=== PATIENT | female | born 1950 | race Caucasian/White ===

== ENCOUNTER 2017-04-22 06:40 | Inpatient (IN) | payer MEDICARE ==
[2017-04-22] MEDS ORDERED: Albuterol-Ipratrop 3 mg / 0.5 (3 ml) UD IH STA (07:19)
[2017-04-22] MEDS ORDERED: methylPREDNISolone 125 MG in Sodium Chloride 0.9% 50 ML IVPB STA (07:19)
[2017-04-22] MEDS ORDERED: Albuterol-Ipratrop 3 mg / 0.5 (3 ml) UD INH STA ×2 (07:22→07:23)
[2017-04-22] MEDS ORDERED: Sodium Chloride 0.9% 1,000 ML IV STA (07:22)
--- NOTE | 2017-04-22 07:30 | ED PDOC ---
History of Present Illness History of Present Illness: 67yo female with history of asthma, COPD, breast cancer with left breast mastectomy, presents to ER with complaints of cough, and fever for the past 4 days. Patient states she might have the flu however she has not visited her PCP for evaluation yet. She is currently on albuterol/ipratropium on home, as well as montelukast for her allergies. She reports shortness of breath, intermittent episodes of post-tussive vomiting as well. She denies any diarrhea, back pain or abdominal pain. Of note, patient states she fell 3 days ago and injured her left knee; denies any weakness, numbness, new injuries or trauma. She has no other medical complaints. HPI: Influenza Time Seen by Provider: 04/22/17 07:09 Chief Complaint: Flu-like Symptoms Chief Complaint (Provider): Cough, fever History Per: Patient Exam Limitations: no limitations Have you had recent travel within the past 21 days to any of: No Onset/Duration Of Symptoms: Days (4) Symptoms include: fever, cough, vomiting (post-tussive) Risk factors for flu complications: Yes: adult > 65 years, chronic lung disease Past Medical History Reviewed: Historical Data, Nursing Documentation, Vital Signs Vital Signs: Last Vital Signs Temp 97.4 F L 04/22/17 06:55 Pulse 89 04/22/17 06:55 Resp 16 04/22/17 06:55 BP 121/81 04/22/17 06:55 Pulse Ox 96 04/22/17 06:55 - Medical History PMH: Asthma, COPD, Malignancy (LEFT BREAST) - Surgical History Surgical History: Appendectomy, Cholecystectomy Other surgeries: left mastectomy - Family History Family History: States: Unknown Family Hx - Social History Current smoker - smoking cessation education provided: Yes SMOKER/PACKS PER DAY:: 1 (for 30+ years) Alcohol: None Drugs: Denies - Immunization History Hx Tetanus Toxoid Vaccination: No Hx Influenza Vaccination: No Hx Pneumococcal Vaccination: No - Home Medications Home Medications: Ambulatory Orders Medication Instructions Recorded Albuterol 0.083% [Albuterol 0.083% 3 ml IH DAILY 03/24/15 Inhal Amy (2.5 mg/3 ml) UD] Montelukast [Singulair] 10 mg PO DAILY 03/24/15 Omeprazole 40 mg PO DAILY 02/13/16 Tiotropium [place] Inhaler 1 inhaler INH PRN PRN 03/24/15 [Spiriva Inhalation Handihaler Device] Naproxen Sodium [Naproxen Sodium 375 mg PO BID PRN 12/30/16 Cr] Ondansetron ODT [Zofran ODT] 1 odt PO BID PRN #6 odt 12/30/16 Pantoprazole Sodium [Protonix] 20 mg PO DAILY #15 ect 12/30/16 - Allergies Allergies/Adverse Reactions: Allergies Allergy/AdvReac Type Severity Reaction Status Date / Time No Known Allergies Allergy Unverified 03/24/15 23:22 Review of Systems ROS Statement: Except As Marked, All Systems Reviewed And Found Negative Constitutional: Positive for: Fever Cardiovascular: Negative for: Chest Pain Respiratory: Positive for: Cough, Shortness of Breath Gastrointestinal: Negative for: Abdominal Pain Musculoskeletal: Positive for: Leg Pain (left knee pain) Physical Exam - Reviewed Nursing Documentation Reviewed: Yes Vital Signs Reviewed: Yes - Physical Exam Appears: Positive for: Non-toxic, In Acute Distress (mild to moderate distress) Head Exam: Positive for: ATRAUMATIC, NORMAL INSPECTION, NORMOCEPHALIC Skin: Positive for: Normal Color Eye Exam: Positive for: Normal appearance Neck: Positive for: Supple Cardiovascular/Chest: Positive for: Regular Rate, Rhythm Respiratory: Positive for: Wheezing (diffuse bilateral expitory wheezing; prolonged expitory phase). Negative for: Rales Gastrointestinal/Abdominal: Positive for: Normal Exam, Soft. Negative for: Tenderness Extremity: Positive for: Normal ROM, Swelling (mild swelling to left knee; patient has a knee brace on). Negative for: Pedal Edema Neurologic/Psych: Positive for: Alert, Oriented. Negative for: Motor/Sensory Deficits Medical Decision Making Medical Decision Making: Impression: COPD/Asthma exacerbation Plan: -- Duoneb 3ml INH x 3 -- Labs -- CXR -- EKG -- Solumedrol 125mg IVP -- IV Fluids -- Tylenol 650mg PO -- Rapid Flu Time: 0918 CXR FINDINGS: LUNGS: No consolidative infiltrate suggested. A 2 mm probable granuloma and/or bone island over the left mid to upper lung zone is noted. Conceivably a prominent vessel on end could simulate this definite given the slightly larger configuration contralateral right lung. PLEURA: No significant pleural effusion identified. No pneumothorax apparent. CARDIOVASCULAR: Normal. OSSEOUS STRUCTURES: Thoracic spondylosis. Bilateral shoulder arthrosis. VISUALIZED UPPER ABDOMEN: Normal. OTHER FINDINGS: None. IMPRESSION: No consolidative infiltrate suggested. Scribe Attestation: Documented by Maria T Felder, acting as a scribe for Mayda Pittman MD. Provider Scribe Attestation: All medical record entries made by the Scribe were at my direction and personally dictated by me. I have reviewed the chart and agree that the record accurately reflects my personal performance of the history, physical exam, medical decision making, and the department course for this patient. I have also personally directed, reviewed, and agree with the discharge instructions and disposition. peak flow 100-150 after 3 nebs and solumedrol IV. Patient continues to feel short of breath. Will admit. Case d/w Dr. Jules for med service admission. - Laboratory Results Result Diagrams: 04/22/17 08:01 04/22/17 08:01 - ECG ECG: Positive for: Interpreted By Me, Viewed By Me Interpretation Of ECG: Sinus Rhythm Normal [place] Rate: 87 O2 Sat by Pulse Oximetry: 96 (RA) Pulse Ox Interpretation: Normal Disposition - Clinical Impression Clinical Impression: COPD exacerbation - Patient ED Disposition Is Patient to be Admitted: Yes Doctor Will See Patient In The: Hospital - Disposition Referrals: Mohini Dobson MD [Primary Care Provider] - Disposition: Routine/Home Disposition Time: 09:46 Condition: FAIR Forms: [employer] (Tanzanian) - Pt Status Changed To: Hospital Disposition Of: Observation - POA Present On Arrival: None
[2017-04-22] MEDS ORDERED: Albuterol-Ipratrop 3 mg / 0.5 (3 ml) UD ONE (07:37)
[2017-04-22 08:06] LABS: BASO # 0.1 K/uL (0.0-0.2); BASO % 1.1 % (0.0-2.0); EOS # 0.5 K/uL (0.0-0.7); EOS % 9.9 % (0.0-4.0); HEMOGLOBIN 13.9 g/dL (12.0-16.0); LYMPH # 1.5 K/uL (1.0-4.3); LYMPH % 28.3 % (20.0-40.0); MEAN CELL VOLUME 88.8 fl (81.0-99.0); MEAN CORPUSCULAR HEMOGLOBIN 30.7 pg (27.0-31.0); MEAN CORPUSCULAR HGB CONC 34.6 g/dL (33.0-37.0); MEAN PLATELET VOLUME 6.6 fl (7.2-11.7); MONO # 0.6 K/uL (0.0-0.8); MONO % 10.6 % (0.0-10.0); NEUT # 2.7 K/uL (1.8-7.0); NEUT % 50.1 % (50.0-75.0); NRBC % 0.1 % (0.0-0.0); RBC 4.54 Mil/uL (3.80-5.20); RED CELL DISTRIBUTION WIDTH 13.7 % (11.5-14.5); WHITE BLOOD COUNT 5.5 K/uL (4.8-10.8)
[2017-04-22 08:19] LABS: ALT/SGPT 38 U/L (9-52); AST/SGOT 37 U/L (14-36); BLOOD UREA NITROGEN 18 mg/dl (7-17); CALCIUM 9.5 mg/dL (8.4-10.2); GFR AFRICAN-AMERICAN > 60; GFR NON-AFRICAN AMERICAN > 60
--- NOTE | 2017-04-22 09:12 | RAD ---
HISTORY: cough, fever x 4 days, wheezing COMPARISON: No prior. TECHNIQUE: Chest PA and lateral FINDINGS: LUNGS: No consolidative infiltrate suggested. A 2 mm probable granuloma and/or bone island over the left mid to upper lung zone is noted. Conceivably a prominent vessel on end could simulate this definite given the slightly larger configuration contralateral right lung. PLEURA: No significant pleural effusion identified. No pneumothorax apparent. CARDIOVASCULAR: Normal. OSSEOUS STRUCTURES: Thoracic spondylosis. Bilateral shoulder arthrosis. VISUALIZED UPPER ABDOMEN: Normal. OTHER FINDINGS: None. IMPRESSION: No consolidative infiltrate suggested.
--- NOTE | 2017-04-22 09:36 | RAD ---
PROCEDURE: Left Knee Radiographs. HISTORY: Pain. COMPARISON: None. FINDINGS: BONES: No fracture JOINTS: Tricompartmental mild osteoarthrosis patellofemoral compartment most notable JOINT EFFUSION: Posterior joint effusion not excluded. Posterior popliteal cyst with multiple loose bodies a consideration OTHER FINDINGS: None. 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
[2017-04-22] MEDS ORDERED: NAPROXEN SODIUM PO PRN (09:57)
[2017-04-22] MEDS ORDERED: Sodium Chloride 3% for Inhalation 4 ML VIAL.NEB IH PRN (10:03)
[2017-04-22] MEDS ORDERED: methylPREDNISolone 60 MG in Sodium Chloride 0.9% 50 ML IVPB SCH (10:15)
[2017-04-22 10:32] LABS: ABG ALLEN TEST YES; ARTERIAL BLOOD GAS HCO3 21.1 mmol/L (21-28); ARTERIAL BLOOD GAS HEMOGLOBIN 13.9 g/dL (11.7-17.4); ARTERIAL BLOOD GAS O2 CAPACITY 18.5 mL/dL (16-24); ARTERIAL BLOOD GAS O2 CONTENT 18.6 ML/dL (15-23); ARTERIAL BLOOD GAS O2 SAT 100.4 % (95-98); ARTERIAL BLOOD GAS PCO2 34 mm/Hg (35-45); ARTERIAL BLOOD GAS PH 7.37 (7.35-7.45); ARTERIAL BLOOD GAS PO2 126 mm/Hg (80-100); ARTERIAL BLOOD GAS TCO2 20.7 mmol/L (22-28)
--- NOTE | 2017-04-22 10:40 | HP ---
HISTORY OF PRESENT ILLNESS: Ms. Spivey is a 67-year-old female who was admitted via the Emergency Room because of cough, fever, chills for 4 days, and shortness of breath. She is a chronic cigarette smoker, smokes up to a pack a day for the past several years, who recently saw her primary care physician about a week ago, but indicates that since then her had become sick and her son had become sick and what sounded like an upper respiratory tract infection and she also became sick and has been coughing with shortness of breath, exercise intolerance, and chest tightness. She, however, continues to smoke cigarettes. PAST MEDICAL HISTORY: She has a past medical history of COPD and left breast malignancy. FAMILY HISTORY: Unrevealing. SOCIAL HISTORY: She smokes up to one pack a day for the past several years. Does not drink alcohol. Does not use drugs and lives at home with her . REVIEW OF SYSTEMS: Essentially remarkable for occasional cough and shortness of breath. PHYSICAL EXAMINATION: GENERAL: The patient is , alert and oriented, the son is at bedside giving information. VITAL SIGNS: Blood pressure 121/81 with the pulse of 89, respiratory rate is 16. She is febrile. O2 sat is 96% on room air. SKIN: Shows fair turgor. HEENT: Pupils are equal and reactive and accommodation. JVP flat. Mouth shows fair hygiene with mucous engorgement of pharynx. LUNGS: Poor aeration bilaterally, with scattered rales bilaterally and bilateral wheezing. HEART: Regular. No murmurs or gallops appreciated. BREASTS: Normal except for left breast surgery. ABDOMEN: Soft and nontender, no organomegaly. EXTREMITIES: 1+ pitting pedal edema bilaterally. CENTRAL NERVOUS SYSTEM: Grossly intact. LABORATORY DATA: Remarkable for WBC of 5.5, hemoglobin of 13.9, and platelet count of 159,000. Sodium of 141, potassium of 4.2, BUN of 18, creatinine of 0.7, and glucose of 107. EKG; regular sinus rhythm. Chest x-ray shows no acute cardiopulmonary pathology. IMPRESSION: Acute exacerbation of chronic obstructive pulmonary disease and upper respiratory tract infection incidentally noted. The patient became tachycardic at rest. PLAN: The plan will be to send the patient to telemetry. Obtain serial cardiac enzymes. Repeat EKG. Placed on bronchodilator therapy, oxygen and IV steroids. May need cardiac evaluation. Bassam Jules MD
[2017-04-22] MEDS: Enoxaparin 40 mg Syringe SC SCH (11:00)
[2017-04-22] MEDS: Pantoprazole 40 mg EC Tab PO SCH (11:00)
--- NOTE | 2017-04-22 11:01 | CARD ---
APPROVED REPORT EKG Measurement Heart [id number] <Conclusion> Supraventricular tachycardia Nonspecific ST abnormality Abnormal ECG
--- NOTE | 2017-04-22 11:02 | CARD ---
APPROVED REPORT EKG Measurement Heart [id number] <Conclusion> Normal sinus rhythm Normal ECG
[2017-04-22] MEDS ORDERED: cefTRIAXone (Rocephin) 1 gm Inj ONE (11:22)
--- NOTE | 2017-04-22 11:34 | CP.PCM.CON ---
History of Present Illness - History of Present Illness History of Present Illness: Cardiology 67yo female with history of asthma, COPD, breast cancer with left breast mastectomy, presents to ER with complaints of cough, and fever for the past 4 days. She is currently on albuterol/ipratropium on home, as well as montelukast for her allergies. She reports shortness of breath, intermittent episodes of post-tussive vomiting as well. She denies any diarrhea, back pain or abdominal pain. PMH: Asthma COPD Left Mastectomy 2* CA Appendectomy, Cholecystectomy EKst-NSR 2nd: SVT Pt was given Cardizem IV now in NSR @88 BPM Denies any Hx cardiac disease no Palpitations / CP Past Patient History - Past Medical History & Family History Past Medical History?: Yes - Past Social History Alcohol: None Drugs: Denies - PULMONARY Hx Asthma: Yes Hx Chronic Obstructive Pulmonary Disease (COPD): Yes - HEMATOLOGICAL/ONCOLOGICAL Hx Hepatitis C: Yes - MUSCULOSKELETAL/RHEUMATOLOGICAL Hx Falls: No - PSYCHIATRIC Hx Substance Use: No - SURGICAL HISTORY Hx Appendectomy: Yes Hx Cholecystectomy: Yes - ANESTHESIA Hx Anesthesia: Yes Hx Anesthesia Reactions: No Hx Malignant Hyperthermia: No Meds Allergies/Adverse Reactions: Allergies Allergy/AdvReac Type Severity Reaction Status Date / Time No Known Allergies Allergy Unverified 03/24/15 23:22 - Medications Medications: Current Medications Enoxaparin Sodium (Lovenox) 40 mg SC DAILY [facility] PRN Reason: Protocol Sodium Chloride (Sodium Chloride 0.9%) 1,000 mls @ 250 mls/hr IV .Q4H STA Stop: 04/22/17 11:21 Last Admin: 04/22/17 07:46 Dose: 250 mls/hr Ceftriaxone Sodium 1 gm/ (Sodium Chloride) 100 mls @ 100 mls/hr IVPB DAILY [facility] PRN Reason: Protocol Dextrose/Sodium Chloride (Dextrose 5%/0.45% Ns 1000 Ml) 1,000 mls @ 42 mls/hr IV .[id number] [facility] Stop: 04/23/17 10:04 Levalbuterol HCl (Xopenex) 1.25 mg INH RQ8 [facility] Methylprednisolone (Solu-Medrol) 60 mg IV Q8 [facility] Montelukast Sodium (Singulair) 10 mg PO DAILY [facility] Naproxen (Naprosyn Tab) 375 mg PO BID [facility] Pantoprazole Sodium (Protonix Ec Tab) 40 mg PO DAILY [facility] Promethazine HCl/Dextromethorphan (Phenergan Dm Syrup) 10 ml PO Q6 PRN PRN Reason: Cough Physical Exam - Constitutional Appears: Well - Respiratory Exam Respiratory Exam: Decreased Breath Sounds, Rhonchi, Wheezes - Cardiovascular Exam Cardiovascular Exam: REGULAR RHYTHM Results - Vital Signs Recent Vital Signs: Last Vital Signs Temp 97.9 F 04/22/17 09:44 Pulse 185 H 04/22/17 10:42 Resp 30 H 04/22/17 10:42 BP 102/85 04/22/17 10:42 Pulse Ox 98 04/22/17 10:42 - Labs Result Diagrams: 04/22/17 08:01 04/22/17 08:01 Labs: Laboratory Results - last 24 hr 04/22/17 04/22/17 04/22/17 08:01 08:01 08:01 WBC 5.5 RBC 4.54 Hgb 13.9 Hct 40.3 MCV 88.8 MCH 30.7 MCHC 34.6 RDW 13.7 Plt Count 159 MPV 6.6 L Neut % (Auto) 50.1 Lymph % (Auto) 28.3 Bowie % (Auto) 10.6 H Eos % (Auto) 9.9 H Baso % (Auto) 1.1 Neut # (Auto) 2.7 Lymph # (Auto) 1.5 Bowie # (Auto) 0.6 Eos # (Auto) 0.5 Baso # (Auto) 0.1 pCO2 pO2 HCO3 ABG pH ABG Total CO2 ABG O2 Saturation ABG O2 Content ABG Base Excess ABG Hemoglobin ABG Carboxyhemoglobin POC ABG HHb (Measured) ABG Methemoglobin ABG O2 Capacity Peng Test A-a O2 Difference Hgb O2 Saturation FiO2 Sodium 141 Potassium 4.2 Chloride 102 Carbon Dioxide 24 Anion Gap 19 BUN 18 H Creatinine 0.7 Est GFR ( Amer) > 60 Est GFR (Non-Af Amer) > 60 Random Glucose 107 H Calcium 9.5 Total Bilirubin 0.3 AST 37 H D ALT 38 Alkaline Phosphatase 62 Total Protein 7.9 Albumin 4.0 Globulin 3.9 Albumin/Globulin Ratio 1.0 Influenza Typ A,B (EIA) Negative for flu a/b 04/22/17 10:25 WBC RBC Hgb Hct MCV MCH MCHC RDW Plt Count MPV Neut % (Auto) Lymph % (Auto) Bowie % (Auto) Eos % (Auto) Baso % (Auto) Neut # (Auto) Lymph # (Auto) Bowie # (Auto) Eos # (Auto) Baso # (Auto) pCO2 34 L pO2 126 H HCO3 21.1 ABG pH 7.37 ABG Total CO2 20.7 L ABG O2 Saturation 100.4 H ABG O2 Content 18.6 ABG Base Excess -4.8 L ABG Hemoglobin 13.9 ABG Carboxyhemoglobin 4.5 H POC ABG HHb (Measured) -0.4 L ABG Methemoglobin 1.9 ABG O2 Capacity 18.5 Peng Test Yes A-a O2 Difference -19.0 Hgb O2 Saturation 94.0 L FiO2 21.0 Sodium Potassium Chloride Carbon Dioxide Anion Gap BUN Creatinine Est GFR ( Amer) Est GFR (Non-Af Amer) Random Glucose Calcium Total Bilirubin AST ALT Alkaline Phosphatase Total Protein Albumin Globulin Albumin/Globulin Ratio Influenza Typ A,B (EIA) Assessment & Plan (1) Tachycardia Assessment and Plan: Pt had a bout of SVT Txed with cardizem now in NSR Probably 2* to COPD/Asthma/Flu Status: Acute (2) Asthma Status: Acute (3) History of COPD Status: Acute (4) Influenza-like illness Status: Acute (5) Sepsis Status: Acute
[2017-04-22 12:28] LABS: T4 13.3 ug/dl (5.5-11.0)
[2017-04-22] MEDS: Dextrose 5%/0.45% NS 1,000 ML IV SCH (13:43)
[2017-04-22] MEDS ORDERED: Albuterol-Ipratrop 3 mg / 0.5 (3 ml) UD INH SCH (14:00)
[2017-04-22] MEDS: Levalbuterol 1.25 MG/3 ML Inhal Soln UD INH SCH ×2 (15:52→23:31)
[2017-04-22] MEDS ORDERED: Alum-Mag Hydrox-Simethicone Susp (30 mL) PO SCH (20:00)
[2017-04-22] MEDS: Alum-Mag Hydrox-Simethicone Susp (30 mL) PO PRN (21:12)
[2017-04-22] MEDS: Promethazine DM 12.5 mg-30 mg/10 ml Syrup PO PRN (22:19)
[2017-04-23] MEDS: Promethazine DM 12.5 mg-30 mg/10 ml Syrup PO PRN ×2 (04:51→11:48)
[2017-04-23] MEDS: Levalbuterol 1.25 MG/3 ML Inhal Soln UD INH SCH ×3 (07:41→23:47)
--- NOTE | 2017-04-23 08:36 | CP.PCM.PN ---
Subjective - Date & Time of Evaluation Date of Evaluation: 04/23/17 Time of Evaluation: 08:37 - Subjective Subjective: ANXIOUS NO NEW CLINICAL FINDINGS TACHYCARDIA RESOLVED Objective - Vital Signs/Intake and Output Vital Signs (last 24 hours): Temp Pulse Resp BP Pulse Ox 97.6 F 87 20 109/68 98 04/23/17 08:00 04/23/17 08:00 04/23/17 08:00 04/23/17 08:00 04/23/17 08:00 - Medications Medications: Current Medications Al Hydrox/Mg Hydrox/Simethicone (Maalox Plus 30 Ml) 30 ml PO Q8 PRN PRN Reason: Indigestion / Heartburn Last Admin: 04/22/17 21:12 Dose: 30 ml Enoxaparin Sodium (Lovenox) 40 mg SC DAILY [facility] PRN Reason: Protocol Last Admin: 04/22/17 11:00 Dose: 40 mg Ceftriaxone Sodium 1 gm/ (Sodium Chloride) 100 mls @ 100 mls/hr IVPB DAILY [facility] PRN Reason: Protocol Last Admin: 04/22/17 13:43 Dose: Not Given Dextrose/Sodium Chloride (Dextrose 5%/0.45% Ns 1000 Ml) 1,000 mls @ 42 mls/hr IV .[id number] [facility] Stop: 04/23/17 10:04 Last Admin: 04/22/17 13:43 Dose: Not Given Levalbuterol HCl (Xopenex) 1.25 mg INH RQ8 [facility] Last Admin: 04/23/17 07:41 Dose: 1.25 mg Methylprednisolone (Solu-Medrol) 60 mg IV Q8 [facility] Last Admin: 04/23/17 00:45 Dose: 60 mg Montelukast Sodium (Singulair) 10 mg PO DAILY [facility] Last Admin: 04/22/17 11:00 Dose: 10 mg Naproxen (Naprosyn Tab) 375 mg PO BID [facility] Last Admin: 04/23/17 00:48 Dose: 375 mg Nicotine (Nicoderm Cq) 1 patch TD DAILY [facility] Last Admin: 04/22/17 16:27 Dose: 1 patch Pantoprazole Sodium (Protonix Ec Tab) 40 mg PO DAILY [facility] Last Admin: 04/22/17 11:00 Dose: 40 mg Pneumococcal Polyvalent Vaccine (Pneumovax 23 Vaccine) 0.5 ml IM .ONCE ONE Stop: 04/23/17 09:01 Promethazine HCl/Dextromethorphan (Phenergan Dm Syrup) 10 ml PO Q6 PRN PRN Reason: Cough Last Admin: 04/23/17 04:51 Dose: 10 ml - Labs Labs: 04/22/17 08:01 04/22/17 08:01 - Constitutional Appears: No Acute Distress - Head Exam Head Exam: ATRAUMATIC, NORMAL INSPECTION, NORMOCEPHALIC - Eye Exam Eye Exam: EOMI, Normal appearance, PERRL Pupil Exam: NORMAL ACCOMODATION, PERRL - ENT Exam ENT Exam: Mucous Membranes Moist, Normal Exam - Neck Exam Neck Exam: Full ROM, Normal Inspection. absent: Lymphadenopathy - Respiratory Exam Respiratory Exam: Decreased Breath Sounds, Prolonged Expiratory Phase, NORMAL BREATHING PATTERN - Cardiovascular Exam Cardiovascular Exam: REGULAR RHYTHM, +S1, +S2. absent: Murmur - GI/Abdominal Exam GI & Abdominal Exam: Soft, Normal Bowel Sounds. absent: Tenderness - Rectal Exam Rectal Exam: NORMAL INSPECTION - Extremities Exam Extremities Exam: Full ROM, Normal Capillary Refill, Normal Inspection. absent : Joint Swelling, Pedal Edema - Back Exam Back Exam: NORMAL INSPECTION - Neurological Exam Neurological Exam: Alert, Awake, CN II-XII Intact, Normal Gait, Oriented x3 - Psychiatric Exam Psychiatric exam: Normal Affect, Normal Mood - Skin Skin Exam: Dry, Intact, Normal Color, Warm Assessment and Plan - Assessment and Plan (Free Text) Assessment: ACUTE EXAC OF COPD ARRYTHMIAS--PROBABLY DUE TO BRONCHODILATORS ANXIETY URI Plan: CONTINUE RX ORDERED OBTAIN ECHO
[2017-04-23] MEDS ORDERED: Pneumococcal 23-Valent Vaccine IM ONE (09:00)
[2017-04-23] MEDS: Enoxaparin 40 mg Syringe SC SCH (09:09)
[2017-04-23] MEDS: Pantoprazole 40 mg EC Tab PO SCH (09:10)
[2017-04-23] MEDS: Dextrose 5%/0.45% NS 1,000 ML IV SCH (11:47)
--- NOTE | 2017-04-23 14:04 | CARD ---
APPROVED REPORT EXAM: Two-dimensional and M-mode echocardiogram with Doppler and color Doppler. Other Information Quality : AverageRhythm : Tachycardia Technically limited study due to COPD INDICATION Abnormal EKG/Arrhythmia 2D DIMENSIONS IVSd1.11 (0.7-1.1cm)LVDd3.92 (3.9-5.9cm) LVOT Diameter1.64 (1.8-2.4cm)PWd0.79 (0.7-1.1cm) IVSs1.30 (0.8-1.2cm)LVDs1.93 (2.5-4.0cm) FS (%) 50.8 %PWs1.29 (0.8-1.2cm) M-Mode DIMENSIONS Left Atrium (MM)3.03 (2.5-4.0cm)IVSd0.53 (0.7-1.1cm) Aortic Root2.80 (2.2-3.7cm)LVDd5.16 (4.0-5.6cm) Aortic Cusp Exc.1.91 (1.5-2.0cm)PWd0.74 (0.7-1.1cm) IVSs1.05 cmFS (%) 38 % LVDs3.23 (2.0-3.8cm)PWs1.17 cm Mitral Valve MV E Fmcjyzrg58.8cm/sMV DECEL [id number] A Xtopuolf38.6cm/s MV OEB09xxS/A ratio1.0MVA (PHT)3.45cm2 TDI Lateral E' Peak V11.49cm/sMedial E' Peak V8.72cm/sE/Lateral E'8.3 E/Medial E'11.0 Pulmonary Valve PV Peak Zlgdlnod78.1cm/s Tricuspid Valve TR Peak Kbzxscoc816la/sRAP [id number] Peak Gr.18mmHg [id number] LEFT VENTRICLE The left ventricle is normal size. There is normal left ventricular wall thickness. The left ventricular function is normal. The left ventricular ejection fraction is within the normal range. The Ejection Fraction is 60-65%. There is normal LV segmental wall motion. The left ventricular diastolic function is normal. RIGHT VENTRICLE The right ventricle is normal size. There is normal right ventricular wall thickness. The right ventricular systolic function is normal. ATRIA The left atrium size is normal. The right atrium size is normal. AORTIC VALVE The aortic valve is normal in structure. No aortic regurgitation is present. There is no aortic valvular stenosis. MITRAL VALVE The mitral valve is normal in structure. There is no mitral valve stenosis. There is no mitral valve regurgitation noted. TRICUSPID VALVE The tricuspid valve is normal in structure. There is no tricuspid valve regurgitation noted. There is no tricuspid valve stenosis. PULMONIC VALVE The pulmonary valve is normal in structure. There is no pulmonic valvular regurgitation. GREAT VESSELS The aortic root is normal in size. The IVC is normal in size and collapses >50% with inspiration. PERICARDIAL EFFUSION The pericardium appears normal. <Conclusion> The left ventricle is normal size. The left ventricular function is normal. The left ventricular ejection fraction is within the normal range. The Ejection Fraction is 60-65%.
[2017-04-23] MEDS ORDERED: Albuterol-Ipratrop 3 mg / 0.5 (3 ml) UD INH STA (14:36)
[2017-04-23 15:20] LABS: ABG ALLEN TEST YES; ARTERIAL BLOOD GAS HCO3 22.5 mmol/L (21-28); ARTERIAL BLOOD GAS HEMOGLOBIN 12.5 g/dL (11.7-17.4); ARTERIAL BLOOD GAS O2 CAPACITY 17.1 mL/dL (16-24); ARTERIAL BLOOD GAS O2 CONTENT 16.8 ML/dL (15-23); ARTERIAL BLOOD GAS PCO2 34 mm/Hg (35-45); ARTERIAL BLOOD GAS PO2 89 mm/Hg (80-100); ARTERIAL BLOOD GAS TCO2 22.1 mmol/L (22-28)
--- NOTE | 2017-04-23 15:33 | RAD ---
HISTORY: COPD. COMPARISON: April 22, 2017. FINDINGS: LUNGS: Low lung volumes accentuate pulmonary markings, particularly left lower lobe. PLEURA: No significant pleural effusion identified, no pneumothorax apparent. CARDIOVASCULAR: Normal. OSSEOUS STRUCTURES: No significant abnormalities. VISUALIZED UPPER ABDOMEN: Normal. OTHER FINDINGS: None. IMPRESSION: Questionable infiltrate, atelectasis left lower lobe. Alternatively this may represent portable technique with poor inspiratory effort.
[2017-04-23] MEDS: Alum-Mag Hydrox-Simethicone Susp (30 mL) PO PRN (15:45)
[2017-04-23] MEDS ORDERED: Promethazine/Cod 6.25mg-10mg/5ml Syr UD PO ONE (15:51)
[2017-04-24] MEDS: Alum-Mag Hydrox-Simethicone Susp (30 mL) PO PRN ×2 (01:12→22:24)
[2017-04-24] MEDS: Enoxaparin 40 mg Syringe SC SCH (08:40)
[2017-04-24] MEDS: Pantoprazole 40 mg EC Tab PO SCH (08:45)
--- NOTE | 2017-04-24 14:11 | CP.PCM.PN ---
Subjective - Date & Time of Evaluation Date of Evaluation: 04/24/17 Time of Evaluation: 14:11 - Subjective Subjective: CLINICALLY IMPROVING NO CHEST PAINS Objective - Vital Signs/Intake and Output Vital Signs (last 24 hours): Temp Pulse Resp BP Pulse Ox 98.1 F 88 18 146/74 95 04/24/17 12:00 04/24/17 12:00 04/24/17 12:00 04/24/17 12:00 04/24/17 12:00 - Medications Medications: Current Medications Al Hydrox/Mg Hydrox/Simethicone (Maalox Plus 30 Ml) 30 ml PO Q8 PRN PRN Reason: Indigestion / Heartburn Last Admin: 04/24/17 01:12 Dose: 30 ml Enoxaparin Sodium (Lovenox) 40 mg SC DAILY [facility] PRN Reason: Protocol Last Admin: 04/24/17 08:40 Dose: 40 mg Ceftriaxone Sodium 1 gm/ (Sodium Chloride) 100 mls @ 100 mls/hr IVPB DAILY [facility] PRN Reason: Protocol Last Admin: 04/24/17 08:45 Dose: 100 mls/hr Levalbuterol HCl (Xopenex) 1.25 mg INH RQ8 [facility] Last Admin: 04/23/17 23:47 Dose: 1.25 mg Methylprednisolone (Solu-Medrol) 80 mg IV Q8 [facility] Last Admin: 04/24/17 08:47 Dose: 80 mg Montelukast Sodium (Singulair) 10 mg PO DAILY [facility] Last Admin: 04/24/17 08:46 Dose: 10 mg Naproxen (Naprosyn Tab) 375 mg PO BID [facility] Last Admin: 04/24/17 08:41 Dose: 375 mg Nicotine (Nicoderm Cq) 1 patch TD DAILY [facility] Last Admin: 04/24/17 08:45 Dose: 1 patch Pantoprazole Sodium (Protonix Ec Tab) 40 mg PO DAILY [facility] Last Admin: 04/24/17 08:45 Dose: 40 mg Promethazine HCl/Dextromethorphan (Phenergan Dm Syrup) 10 ml PO Q6 PRN PRN Reason: Cough Last Admin: 04/23/17 11:48 Dose: 10 ml - Labs Labs: 04/22/17 08:01 04/22/17 08:01 - Constitutional Appears: Chronically Ill - Head Exam Head Exam: ATRAUMATIC, NORMAL INSPECTION, NORMOCEPHALIC - Eye Exam Eye Exam: EOMI, Normal appearance, PERRL Pupil Exam: NORMAL ACCOMODATION, PERRL - ENT Exam ENT Exam: Mucous Membranes Moist, Normal Exam - Neck Exam Neck Exam: Full ROM, Normal Inspection. absent: Lymphadenopathy - Respiratory Exam Respiratory Exam: Prolonged Expiratory Phase, NORMAL BREATHING PATTERN - Cardiovascular Exam Cardiovascular Exam: REGULAR RHYTHM, +S1, +S2. absent: Murmur - GI/Abdominal Exam GI & Abdominal Exam: Soft, Normal Bowel Sounds. absent: Tenderness - Rectal Exam Rectal Exam: NORMAL INSPECTION - Extremities Exam Extremities Exam: Full ROM, Normal Capillary Refill, Normal Inspection, Pedal Edema. absent: Joint Swelling - Back Exam Back Exam: NORMAL INSPECTION - Neurological Exam Neurological Exam: Alert, Awake, CN II-XII Intact, Normal Gait, Oriented x3 - Psychiatric Exam Psychiatric exam: Normal Affect, Normal Mood - Skin Skin Exam: Dry, Intact, Normal Color, Warm Assessment and Plan - Assessment and Plan (Free Text) Assessment: COPD PEDAL EDEMA ARRYTHMIAS IMPROVED PNEUMONIA Plan: CONTINUE PRESENT RX CASE DISCUSSED WITH PT AND SON--D/C IN AM IF STABLE
[2017-04-24] MEDS: Levalbuterol 1.25 MG/3 ML Inhal Soln UD INH SCH ×2 (15:35→23:28)
--- NOTE | 2017-04-24 19:20 | US ---
PROCEDURE: Bilateral lower extremity venous duplex Doppler. HISTORY: DVT COMPARISON: None available. TECHNIQUE: Bilateral common femoral, superficial femoral, popliteal and posterior tibial veins were evaluated. Flow was assessed with color Doppler, compressibility, assessment of phasic flow and augmentation response. FINDINGS: COMMON FEMORAL VEIN: Right CFV: Unremarkable. Left CFV: Unremarkable. SUPERFICIAL FEMORAL VEIN: Right SFV: Unremarkable. Left SFV: Unremarkable. POPLITEAL VEIN: Right Popliteal: Unremarkable. Left Popliteal: Unremarkable. POSTERIOR TIBIAL VEIN: Right PTV: Unremarkable. Left PTV: Unremarkable. OTHER FINDINGS: None. IMPRESSION: No evidence of deep venous thrombosis.
[2017-04-24] MEDS: Promethazine DM 12.5 mg-30 mg/10 ml Syrup PO PRN (21:32)
[2017-04-24 23:55] VITALS: RESP 18; O2SAT 97
[2017-04-25] MEDS: Levalbuterol 1.25 MG/3 ML Inhal Soln UD INH SCH (07:41)
[2017-04-25 08:27] VITALS: BP 130/69; PULSE 92; TEMP 97.4
[2017-04-25] MEDS: Enoxaparin 40 mg Syringe SC SCH (09:05)
[2017-04-25] MEDS: Pantoprazole 40 mg EC Tab PO SCH (09:08)
[2017-04-25] MEDS: Promethazine DM 12.5 mg-30 mg/10 ml Syrup PO PRN (09:10)
--- NOTE | 2017-04-25 09:35 | CP.PCM.DIS ---
Provider - Provider Date of Admission: 04/22/17 09:44 Attending physician: Bassam Jules MD Primary care physician: Mohini Dobson MD Time Spent in preparation of Discharge (in minutes): 30 Diagnosis - Discharge Diagnosis (1) Supraventricular tachycardia Status: Acute (2) Osteoarthritis Status: Acute (3) COPD exacerbation Status: Acute (4) GERD (gastroesophageal reflux disease) Status: Acute (5) Pneumonia Status: Acute (6) Tachycardia Status: Acute Hospital Course - Lab Results Lab Results: Micro Results 04/22/17 11:14 Sputum Induced Gram Stain - Final 04/22/17 11:14 Sputum Induced Sputum Culture - Final NORMAL ORAL TAHIR 04/23/17 11:56 Sputum Gram Stain - Final Most Recent Lab Values WBC 5.5 K/uL (4.8-10.8) 04/22/17 08:01 RBC 4.54 Mil/uL (3.80-5.20) 04/22/17 08:01 Hgb 13.9 g/dL (12.0-16.0) 04/22/17 08:01 Hct 40.3 % (34.0-47.0) 04/22/17 08:01 MCV 88.8 fl (81.0-99.0) 04/22/17 08:01 MCH 30.7 pg (27.0-31.0) 04/22/17 08:01 MCHC 34.6 g/dL (33.0-37.0) 04/22/17 08:01 RDW 13.7 % (11.5-14.5) 04/22/17 08:01 Plt Count 159 K/uL (130-400) 04/22/17 08:01 MPV 6.6 fl (7.2-11.7) L 04/22/17 08:01 Neut % (Auto) 50.1 % (50.0-75.0) 04/22/17 08:01 Lymph % (Auto) 28.3 % (20.0-40.0) 04/22/17 08:01 [place] % (Auto) 10.6 % (0.0-10.0) H 04/22/17 08:01 Eos % (Auto) 9.9 % (0.0-4.0) H 04/22/17 08:01 Baso % (Auto) 1.1 % (0.0-2.0) 04/22/17 08:01 Neut # (Auto) 2.7 K/uL (1.8-7.0) 04/22/17 08:01 Lymph # (Auto) 1.5 K/uL (1.0-4.3) 04/22/17 08:01 [place] # (Auto) 0.6 K/uL (0.0-0.8) 04/22/17 08:01 Eos # (Auto) 0.5 K/uL (0.0-0.7) 04/22/17 08:01 Baso # (Auto) 0.1 K/uL (0.0-0.2) 04/22/17 08:01 pCO2 34 mm/Hg (35-45) L 04/23/17 15:17 pO2 89 mm/Hg (80-100) 04/23/17 15:17 HCO3 22.5 mmol/L (21-28) 04/23/17 15:17 ABG pH 7.40 (7.35-7.45) 04/23/17 15:17 ABG Total CO2 22.1 mmol/L (22-28) 04/23/17 15:17 ABG O2 Saturation 98.0 % (95-98) 04/23/17 15:17 ABG O2 Content 16.8 ML/dL (15-23) 04/23/17 15:17 ABG Base Excess -3.1 mmol/L (-2.0-3.0) L 04/23/17 15:17 ABG Hemoglobin 12.5 g/dL (11.7-17.4) 04/23/17 15:17 ABG Carboxyhemoglobin 1.8 % (0.5-1.5) H 04/23/17 15:17 POC ABG HHb (Measured) 1.9 % (0.0-5.0) 04/23/17 15:17 ABG Methemoglobin 1.0 % (0.0-3.0) 04/23/17 15:17 ABG O2 Capacity 17.1 mL/dL (16-24) 04/23/17 15:17 Peng Test Yes 04/23/17 15:17 A-a O2 Difference 68.0 mm/Hg 04/23/17 15:17 Hgb O2 Saturation 95.3 % (95.0-98.0) 04/23/17 15:17 Vent Mode 2l nc 04/23/17 15:17 FiO2 28.0 % 04/23/17 15:17 Sodium 141 mmol/l (132-148) 04/22/17 08:01 Potassium 4.2 MMOL/L (3.6-5.0) 04/22/17 08:01 Chloride 102 mmol/L (98-107) 04/22/17 08:01 Carbon Dioxide 24 mmol/L (22-30) 04/22/17 08:01 Anion Gap 19 (10-20) 04/22/17 08:01 BUN 18 mg/dl (7-17) H 04/22/17 08:01 Creatinine 0.7 mg/dl (0.7-1.2) 04/22/17 08:01 Est GFR ( Amer) > 60 03 08:01 Est GFR (Non-Af Amer) > 60 04/22/17 08:01 Random Glucose 107 mg/dL (65-105) H 04/22/17 08:01 Calcium 9.5 mg/dL (8.4-10.2) 04/22/17 08:01 Total Bilirubin 0.3 mg/dl (0.2-1.3) 04/22/17 08:01 AST 37 U/L (14-36) H D 04/22/17 08:01 ALT 38 U/L (9-52) 04/22/17 08:01 Alkaline Phosphatase 62 U/L (38-126) 04/22/17 08:01 Troponin I < 0.0120 ng/mL (0.00-0.120) 04/22/17 18:32 Total Protein 7.9 G/DL (6.3-8.2) 04/22/17 08:01 Albumin 4.0 g/dL (3.5-5.0) 04/22/17 08:01 Globulin 3.9 gm/dL (2.2-3.9) 04/22/17 08:01 Albumin/Globulin Ratio 1.0 (1.0-2.1) 04/22/17 08:01 Thyroxine (T4) 13.3 ug/dl (5.5-11.0) H 04/22/17 11:13 TSH 3rd Generation 0.55 mIU/ML (0.46-4.68) 04/22/17 11:13 Influenza Typ A,B (EIA) Negative for flu a/b (NEGATIVE) 04/22/17 08:01 - Hospital Course Hospital Course: clinically improved sob resolved Discharge Exam - Head Exam Head Exam: ATRAUMATIC, NORMAL INSPECTION, NORMOCEPHALIC - Eye Exam Eye Exam: EOMI, Normal appearance, PERRL Pupil Exam: NORMAL ACCOMODATION, PERRL - GI/Abdominal Exam GI & Abdominal Exam: Normal Bowel Sounds - Rectal Exam Rectal Exam: NORMAL INSPECTION - Neurological Exam Neurological exam: Alert, CN II-XII Intact, Normal Gait, Oriented x3, Reflexes Normal - Psychiatric Exam Psychiatric exam: Normal Affect, Normal Mood - Skin Skin Exam: Dry, Intact, Normal Color, Warm Discharge Plan - Follow Up Plan Condition: STABLE Disposition: HOME/ ROUTINE Patient education suggested?: Yes Instructions: Exacerbation of COPD (DC) Additional Instructions: follow up with pmd in 1 week Referrals: Mohini Dobson MD [Primary Care Provider] - Bassam Jules MD [Staff Provider] -
== END 2017-04-25 11:34 | disposition home health service (06) | DRG 190 ==
LOC: H.ER 06:40 → H.ERHOLD 09:44 → OBSVTOIN 09:44 → H.TEL 11:50
PROVIDERS: ADMIT Internal Medicine Pulmonary Disease; ATTEND Internal Medicine Pulmonary Disease
PROC: 3E0F73Z Introduction of Anti-inflammatory into Respiratory Tract, Via Natural or Artificial Opening (ICD-10-PCS; principal; 2017-04-22)
PROC: 3E0234Z Introduction of Serum, Toxoid and Vaccine into Muscle, Percutaneous Approach (ICD-10-PCS; 2017-04-23)
DX: J44.1 Chronic obstructive pulmonary disease with (acute) exacerbation (principal); J11.00 Influenza due to unidentified influenza virus with unspecified type of pneumonia; I47.1 Supraventricular tachycardia; J44.0 Chronic obstructive pulmonary disease with (acute) lower respiratory infection; K21.9 Gastro-esophageal reflux disease without esophagitis; M19.90 Unspecified osteoarthritis, unspecified site; F41.9 Anxiety disorder, unspecified; F17.210 Nicotine dependence, cigarettes, uncomplicated; Z23 Encounter for immunization; Z85.3 Personal history of malignant neoplasm of breast; Z90.12 Acquired absence of left breast and nipple